=== PATIENT | female | born 1985 | race Caucasian/White ===

== ENCOUNTER 2017-03-29 12:43 | Emergency (ER) | payer MEDICAID ==
[~2017-03-29] VITALS: Ht 167.6 cm; Wt 57.6 kg
[2017-03-29 12:47] VITALS: BP 112/76
[2017-03-29] MEDS ORDERED: DIAZEPAM 5 MG TABLET PO ONE (14:00)
[2017-03-29] MEDS ORDERED: ONDANSETRON 4 MG TAB.RAPDIS SL ONE (14:00)
[2017-03-29] MEDS ORDERED: MORPHINE SULFATE INJ 2 MG/ML DISP.SYRIN IM ONE (14:00)
[2017-03-29] MEDS ORDERED: DIAZEPAM 5 MG TABLET ONE (14:03)
[2017-03-29] MEDS ORDERED: ONDANSETRON 4 MG TAB.RAPDIS ONE (14:03)
[2017-03-29] MEDS ORDERED: MORPHINE SULFATE INJ 4 MG/ML DISP.SYRIN ONE (14:03)
--- NOTE | 2017-03-29 15:40 | NUR ---
REGI BANDAGE APPLIED TO LT KNEE. D/C IN STABLE CONDITION.
== END 2017-03-29 15:42 | disposition home or self-care (01) ==
LOC: ER 12:43
DX: M25.562 Pain in left knee (principal)
CPT/HCPCS: 73564-TC; A4606; J2270; Q0162; Z7610